=== PATIENT | female | born 1965 | race Caucasian/White ===

== ENCOUNTER → 2022-03-25 09:43 | Outpatient (BNVA) | payer MEDICARE, SELFPAY | PROVIDERS: Visit Provider Physician Assistant | DX: Z01.818 Encounter for other preprocedural examination (principal); K52.9 Noninfective gastroenteritis and colitis, unspecified; R13.10 Dysphagia, unspecified | CPT/HCPCS: 99202 ==

== ENCOUNTER 2022-03-25 10:47 | Outpatient (REF) | payer MEDICARE, SELFPAY ==
[2022-03-25 14:20] LABS: MANUAL DIFF FLAG NO
[2022-03-25 14:22] LABS: Basophils Percent Auto 0.8 % (0-2); Eosinophils Absolute Auto 0.1 X10*3/uL (0.0-0.4); Eosinophils Percent Auto 1.7 % (0-4); Hematocrit 42.4 % (37.0-47.0); Hemoglobin 13.8 g/dl (12.0-16.0); Lymphocytes Absolute Auto 1.8 X10*3/uL (1.2-4.9); Mean Corpuscular HGB Conc 32.5 g/dl (31.0-35.0); Mean Corpuscular Hemoglobin 30.4 pg (27.0-33.0); Mean Corpuscular Volume 93.4 fL (80.0-98.0); Mean Platelet Volume 10.3 fL (9.4-12.3); Monocytes Absolute Auto 0.5 X10*3/uL (0.1-1.2); Monocytes Percent Auto 9.7 % (2-11); Neutrophils Absolute Auto 2.4 x10*3/uL (2.0-8.3); Neutrophils Percent Auto 50.8 % (45-73); Platelet Count 264 X10*3/uL (160-400); Red Blood Count 4.54 X10*6/uL (4.20-5.50); Red Cell Distribution Width 12.7 % (11.0-16.0); White Blood Count 4.8 X10*3/uL (4.8-10.8)
[2022-03-25 14:58] LABS: Erythrocyte Sedimentation Rate 2 MM/HR (0-20)
[2022-03-25 15:00] LABS: Alanine Aminotransferase 15 U/L (0-31); Albumin Level 4.2 g/dL (3.5-5.0); Alkaline Phosphatase 79 U/L (39-117); Anion Gap 10 (12-20); Aspartate Amino Transferase 15 U/L (5-31); Bilirubin Total 0.8 mg/dL (0.0-1.0); Blood Urea Nitrogen 12 mg/dL (9-16); Calcium 9.1 mg/dL (8.4-10.2); Carbon Dioxide 30 mmol/L (22-29); Chloride 105 mmol/L (96-108); Estimated Glomerular Filt Rate > 60; Glucose Random 95 mg/dL (60-115); Potassium 4.2 mmol/L (3.3-5.1); Sodium 141 mmol/L (135-145); Thyroid Stimulating Hormone 1.21 uIU/mL (0.32-4.0); Total Protein 6.5 g/dL (6.5-8.0)
[2022-03-28 05:58] LABS: TS Negative Control Passed; TS Panel A 1; TS Panel B 0; TS Positive Control Passed; TSpotTB Negative (Negative)
== END 2022-03-25 10:48 | disposition home or self-care (01) ==
LOC: HO.WFDLDS 10:47
PROVIDERS: Visit Provider Physician Assistant
DX: Z01.818 Encounter for other preprocedural examination (principal); Z11.1 Encounter for screening for respiratory tuberculosis; R13.10 Dysphagia, unspecified; K52.9 Noninfective gastroenteritis and colitis, unspecified; K59.09 Other constipation
CPT/HCPCS: 36415; 80053; 84443; 85025; 85652; 86481

== ENCOUNTER 2022-03-26 09:41 | Outpatient (REF) | payer MEDICARE, SELFPAY ==
[2022-04-01 22:29] LABS: Calprotectin, Fecal 13 mcg/g
== END 2022-03-26 09:42 | disposition home or self-care (01) ==
LOC: HO.WFDLNP 09:41
PROVIDERS: Visit Provider Physician Assistant
DX: R19.7 Diarrhea, unspecified (principal)
CPT/HCPCS: 83993

== ENCOUNTER → 2022-04-20 09:33 | Outpatient (BNVA) | payer MEDICARE, SELFPAY | PROVIDERS: Visit Provider Internal Medicine | DX: K51.90 Ulcerative colitis, unspecified, without complications (principal); R09.82 Postnasal drip; Z86.010 Personal history of colon polyps | CPT/HCPCS: 99212 ==

== ENCOUNTER 2022-06-18 10:41 | Day surgery (SDC) | payer OTHER, SELFPAY ==
[2022-06-12 12:58] VITALS: BMI 23.5
--- NOTE | 2022-06-17 09:15 | P.CONAN_ITS ---
Documented by User: Yuli Barboza NP 06/17/22 09:16 HPI - Anesthesia Eval Consult details Narrative: 57yo F for Colonoscopy PMFSH Active Problems Active Problems: All Active Problems (Updated 04/20/22 @ 10:35 by Radha Weeks MD) Post-nasal drip (Acute) Personal history of colonic polyps (Acute) Ulcerative colitis (Acute) Dysphagia (Acute) Colitis (Acute) Encounter for screening colonoscopy (Acute) Family History Family History Mother COPD (chronic obstructive pulmonary disease) Mother COPD (chronic obstructive pulmonary disease) Surgical History Surgical History Hx of colonoscopy Social History Social History Household Members: Family Household Members Other:: Recent relocated from [place] Alcohol intake: current Alcohol intake frequency: holidays/special occasions only Patient Tobacco Use Status: Never used Tobacco Are you DNR?: No Advance Directives: No Advance Directives Information Provided: Yes Recently lost weight without trying: No Nutrition Risks: No Nutritional Risk Current occupational status: employed Meds Allergies Allergy/AdvReac Type Severity Reaction Status Date / Time No Known Allergies Allergy Verified 04/20/22 09:47 Home Medications Medication Instructions Recorded Confirmed Last Taken Type mesalamine 1.2 gram tablet,delayed g PO 06/18/22 06/18/22 Unknown History release Exam Exam Date and Time: June 17, 2022 0915 Height,Weight and Vital Signs: Height 5 ft 7 in Weight 68.039 kg Pertinent Lab Results Pertinent Lab Results: Laboratory Tests 03/25/22 03/25/22 11:00 11:00 WBC 4.8 Hgb 13.8 Hct 42.4 Plt Count 264 Sodium 141 Potassium 4.2 Chloride 105 Carbon Dioxide 30 H BUN 12 Creatinine 0.78 Assessment and Plan Assessment Anesthesia Assessment: Chart Reviewed Documented by User: Danya Blank MD 06/18/22 12:19 HPI - Anesthesia Eval Consult details Narrative: 57yo F for Colonoscopy fo ulcerative colitis PMFSH Family History Family History Mother COPD (chronic obstructive pulmonary disease) Mother COPD (chronic obstructive pulmonary disease) Family history of problems with anesthesia: No Surgical History Surgical History Hx of colonoscopy History of Problems with Anesthesia: No Social History Social History Household Members: Family Household Members Other:: Recent relocated from [place] Alcohol intake: current Alcohol intake frequency: holidays/special occasions only Patient Tobacco Use Status: Never used Tobacco Are you DNR?: No Advance Directives: No Advance Directives Information Provided: Yes Recently lost weight without trying: No Nutrition Risks: No Nutritional Risk Current occupational status: employed Meds Allergies Allergy/AdvReac Type Severity Reaction Status Date / Time No Known Allergies Allergy Verified 04/20/22 09:47 Home Medications Medication Instructions Recorded Confirmed Last Taken Type mesalamine 1.2 gram tablet,delayed g PO 06/18/22 06/18/22 Unknown History release Exam Airway Mallampati Class: II TM Dist: >3cm Neck ROM: Full Heart: rr Lungs: cta Assessment and Plan Assessment Anesthesia Assessment: Anesthesia Plan Discussed Final Anesthetic Review Family History of Problems with Anesthesia: No History of Problems with Anesthesia: No NPO: Yes ASA Class: II Final Preanesthetic Review: No Changes in Pt Med Stat, Meds/Allgs Chart Reviewed, Consent Obtained/Reviewed and Anes Risks/Benef Reviewed Patient Risk: Low Procedure Risk: Low Anesthetic Plan Anesthetic Plan: Agree w/ Assess. and Plan Disposition: Standard PACU
[2022-06-18 11:19] VITALS: BP 112/62; PULSE 72; RESP 18; TEMP 36.1; O2SAT 99
--- NOTE | 2022-06-18 11:30 | PC.NURSE ---
NO MEDS TAKEN TODAY
[2022-06-18] MEDS: Lactated Ringers 1,000 ML 100 ML IVCONT (11:41)
--- NOTE | 2022-06-18 11:47 | MHC.SHP ---
Pre-Procedural Eval Section A Date of Service: 06/18/22 Section B Chief Complaint: hx colonic polyps,Ulcerative colitis Relevant Family History (Specify if Yes): No Relevant Social History: None Present Medications: see Short Stay Collaborative assessment Allergies: Allergies Allergy/AdvReac Type Severity Reaction Status Date / Time No Known Allergies Allergy Verified 04/20/22 09:47 Review of Systems Review of Systems Comment: Ten point ROS negative Exam Exam Comment: Gen appear: No acute distress HEENT: no icterus Chest: No overt resp distress Abd: soft, nontender, nondistended Psych: Stable affect, answering questions appropriately Neuro: A/Ox3 noted to move all extremities spontaneously Ext: no peripheral edema Plan Diagnosis/Plan: Unchanged I have reviewed the history and physical and performed a pertinent physical examination on my patient. No changes have occurred unless specified. Time Spent With Patient Time: Total time managing care of this patient today ____ minutes.
--- NOTE | 2022-06-18 12:02 | P.OP_ITS ---
Operative Note Operative Note Date of Service: 06/18/22 Narrative: Procedure: Colonoscopy Indication: Personal history of polyps, UC Endoscopist: Radha Weeks MD Anesthesia Provider: Dr Kris Hutchinson Anesthesia type: MAC Instrument: Olympus [id number]-[id number] Consent: Indication, risks vs benefits, and alternatives were discussed with the patient who gave written informed consent to proceed. EKG, pulse, pulse oximetry and blood pressure were monitored throughout the procedure. Please see anesthesia flowsheet. Procedure: The patient was brought to the procedure room and placed in the left lateral decubitus position. IV medications were administered by the anesthesia provider in attendance. A digital rectal exam was performed which was abnormal for external hemorrhoids. A distal attachment cap was affixed to the tip of the scope and the colonoscope was then inserted through the anus and advanced through the colon to the cecum at 75 cm,and terminal ileum. Appendiceal orifice and ileocecal valve were identified. Mucosa was carefully examined under high definition white light as the instrument was slowly withdrawn in a retrograde panoramic fashion. Retroflexion was performed in rectum. The procedure was somewhat difficult due to loop and sharp hepatic flexure, we were able to intubate the cecum after repositioning the pt on her back. There were no immediate obvious complications. The quality of the prep was BBPS: 2+3+2 = adequate Withdrawal time 10 minutes. Limitations: No limitations. Findings: Mucosa: Normal to cecum and terminal ileum. Multibite biopsies were taken from cecum, ascending, transverse, descending, sigmoid and rectum for histological evaluation. Protruding lesions: * 1 sessile polyp of size 3 mm in rectum. Cold forceps polypectomy was performed. The polyp was completely removed and retrieved. * Medium internal hemorrhoids [without] stigmata of recent bleeding. Impression: 1. Normal colon and terminal ileum mucosa (biopsy) 2. Total of 1 polyp removed from rectum. 3. External and terminal hemorrhoids Recommendations: - Follow path results. - Repeat colonoscopy in 7-10 years if polyps is an adenoma.
--- NOTE | 2022-06-18 12:25 | P.CONAN_ITS ---
[facility] Active Problems Active Problems: All Active Problems (Updated 04/20/22 @ 10:35 by Radha Weeks MD) Post-nasal drip (Acute) Personal history of colonic polyps (Acute) Ulcerative colitis (Acute) Dysphagia (Acute) Colitis (Acute) Encounter for screening colonoscopy (Acute) Family History Family History Mother COPD (chronic obstructive pulmonary disease) Mother COPD (chronic obstructive pulmonary disease) Family history of problems with anesthesia: No Surgical History Surgical History Hx of colonoscopy History of Problems with Anesthesia: No Social History Social History Household Members: Family Household Members Other:: Recent relocated from [place] Alcohol intake: current Alcohol intake frequency: holidays/special occasions only Patient Tobacco Use Status: Never used Tobacco Are you DNR?: No Advance Directives: No Advance Directives Information Provided: Yes Recently lost weight without trying: No Nutrition Risks: No Nutritional Risk Current occupational status: employed Meds Allergies Allergy/AdvReac Type Severity Reaction Status Date / Time No Known Allergies Allergy Verified 04/20/22 09:47 Active Medications: Current Medications Lactated Ringer's (Lr) 1,000 mls @ 100 mls/hr IVCONT .Q10H STARR Last Admin: 06/18/22 11:41 Dose: 100 mls/hr Home Medications Medication Instructions Recorded Confirmed Last Taken Type mesalamine 1.2 gram tablet,delayed g PO 06/18/22 06/18/22 Unknown History release Exam Exam Date and Time: June 18, 2022 1225 Height,Weight and Vital Signs: Height 5 ft 7 in Weight 68.039 kg Last Vital Signs Temp 96.9 F 06/18/22 11:19 Pulse 72 06/18/22 11:19 Resp 18 06/18/22 11:19 BP 112/62 06/18/22 11:19 Pulse Ox 99 06/18/22 11:19 O2 Del Method Room Air 06/18/22 11:19 Airway Mallampati Class: II TM Dist: >3cm Neck ROM: Full Assessment and Plan Assessment Anesthesia Assessment: Anesthesia Plan Discussed and Chart Reviewed Final Anesthetic Review Family History of Problems with Anesthesia: No History of Problems with Anesthesia: No NPO: Yes ASA Class: II Final Preanesthetic Review: No Changes in Pt Med Stat, Meds/Allgs Chart Reviewed, Consent Obtained/Reviewed and Anes Risks/Benef Reviewed Patient Risk: Low Procedure Risk: Low Anesthetic Plan Anesthetic Plan: MAC: Disposition: Standard PACU
[2022-06-18 12:57] VITALS: BP 102/53; PULSE 78; RESP 15; TEMP 36.5; O2SAT 98
[2022-06-18 13:13] VITALS: BP 113/63; PULSE 64; RESP 18; TEMP 36.4; O2SAT 100
== END 2022-06-18 13:53 | disposition home or self-care (01) ==
PROVIDERS: PCP Physician Assistant; Visit Provider Internal Medicine
PROC: 0DJD8ZZ Inspection of Lower Intestinal Tract, Via Natural or Artificial Opening Endoscopic (ICD-10-PCS; CPT 45378; principal; 2022-06-18 12:30)
DX: K51.90 Ulcerative colitis, unspecified, without complications (principal); Z86.010 Personal history of colon polyps; K62.1 Rectal polyp; K64.8 Other hemorrhoids; K64.4 Residual hemorrhoidal skin tags; R13.10 Dysphagia, unspecified; R09.82 Postnasal drip; Z79.899 Other long term (current) drug therapy
CPT/HCPCS: 45380; 88305

== ENCOUNTER 2022-12-08 13:00 | Outpatient (AMB) | payer OTHER, SELFPAY ==
--- NOTE | 2022-12-08 13:12 | MHC.OFFVIS ---
Intake Vital Signs 12/08/22 13:15 Height 5 ft 7 in Weight 156 lb 8.451 oz BMI 24.5 BP 118/59 L Blood Pressure Location Lt brachial Position Sitting Pulse 81 Intake Visit Reasons: 6 Month Follow Up Intake Note: Evelyn presents in the office as a 6 month follow up. CC: She states that she is in a good place and not having any concerns. Allergies No Known Allergies Allergy (Verified 12/08/22 13:14) HPI HPI Comments History of Present Illness Details This is a 57 year old female who has PMH of ulcerative colitis coming for follow up of ulcerative colitis. Pt was previously established with Dr Victoria ([facility]), and relocated to [place] earlier last year. She was initially diagnosed with UC in 2019 when she had frequent loose BMs with blood in it with abdominal pain and bloating. Underwent colonoscopy and was diagnosed with left sided UC and since then has been on mesalamine 4.8g/day orally. Initially was also on suppositories as well x 2-3 weeks. Never needed steroids. No known hx of UC or CD in first degree relatives. No fam hx of CRC. IBD History: Type: Ulcerative colitis Location: left side Age / Yr of diagnosis: 54y.o/2019 Previous medications: N/A Steroids: N/A Current medications: Mesalamine 4.8g/day Previous surgeries: N/A Previous endoscopies: 2019: Left sided UC, polyps.. was given a 3 year interval 2016: asymptomatic screening.. diverticulosis. Fam Hx of CRC: No EIM: hip and joint pains but does not think they correlate 04/20/22: Today patient reports no gastrointestinal complaints to include abd pain, N,V,D. BMs are formed and without blood. Continues on meslamine PO as above. No flare since 2019. Reports hx of Shingles last year. Also reports thick mucus in her nasopharynx shorty in the morning but NO difficulty swallowing or painful swallowing. Has been going on for a few months now. NO changes to breathing or voice. 06/18/22: Colonoscopy Mucosa: Normal to cecum and terminal ileum. Multibite biopsies were taken from cecum, ascending, transverse, descending, sigmoid and rectum for histological evaluation. Protruding lesions: 1 sessile polyp of size 3 mm in rectum. Cold forceps polypectomy was performed. The polyp was completely removed and retrieved. Medium internal hemorrhoids [without] stigmata of recent bleeding. Path: Diagnosis A. Cecum, biopsy: Colonic mucosa within normal limits. B. Colon, ascending, biopsy: Colonic mucosa within normal limits. C. Colon, transverse, biopsy: Colonic mucosa within normal limits. D. Colon, descending, biopsy: Colonic mucosa within normal limits. E. Colon, sigmoid, biopsy: Colonic mucosa within normal limits. F. Rectum, biopsy: Rectal mucosa within normal limits. G. Rectum, polypectomy: Hyperplastic mucosal polyp. COMMENT: No dysplasia is seen. 12/08/22: Reports no acute gastrointestinal concerns to include abdominal pain, N,V,D, blood in stool. Has 1 formed BM daily. No vision changes, joint pains or rashes. On mesalamin 4.8g/day PO. Reserves mesalamine [place] only for flares and has not needed to reach for it in months. Overdue for labs and dexa scan that were ordered earlier this year. Up to date with other screening including pap and mammo per her report. PFSH Surgical History Hx of colonoscopy Family History Mother COPD (chronic obstructive pulmonary disease) Mother COPD (chronic obstructive pulmonary disease) Social History Household Members: Family Household Members Other:: Recent relocated from [place] Alcohol intake: current Alcohol intake frequency: holidays/special occasions only Patient Tobacco Use Status: Never used Tobacco Current occupational status: employed Review of Systems Const All systems reviewed & are unremarkable except as noted in HPI and below Physical Exam Vital Signs: Last Vital Signs Pulse 81 12/08/22 13:15 BP 118/59 L 12/08/22 13:15 BMI result Body Mass Index 24.5 Gen appear: NAD HEENT: nonicteric, no cervical lymphadenopathy Chest: CTA CVS: Regular S1/S2 Abd: soft, nontender, nondistended, bowel sounds + Ext: no peripheral edema Neuro: A/Ox3, noted to move all extremities spontaneously Psych: interacting appropriately Assessment & Plan Assessment & Plan (1) Ulcerative colitis: Code(s): K51.90 - Ulcerative colitis, unspecified, without complications (2) Personal history of colonic polyps: Code(s): Z86.010 - Personal history of colonic polyps Plan Reported left sided ulcerative colitis. - Disease and therapy: In endoscopic and histological remission based on colo 05/2022 - Fecal calpro: 13.02/2022. Repeat ordered. - Can decrease mesalamine to maintenance dose of 3.6 g/day. - Nutrition: No report of ileal disease. Iron and B12 check ordered. - Immunization: Educated re all age appropriate vaccines including Covid-19 vaccination and Influenza. Checking hep serologies as well. - Bone Health: Check Vit D levels, will replete if low. Dexa scan ordered. - Cancer prevention: Will be due for dysplasia surveillance 8y after UC dx i.e in 2027. Per her report up to date with pap and mammo. Sun safety: counseled re SPF use Follow up in 6 months Orders: Orders C Reactive Protein Today K51.90 - Ulcerative colitis, unspecified, without complications Ferritin Today K51. - Ulcerative colitis, unspecified, without complications Hepatitis B Core Antibody Today K5. - Ulcerative colitis, unspecified, without complications Hepatitis B Surface Antigen Today K5. - Ulcerative colitis, unspecified, without complications Hepatitis C Antibody Today K51. - Ulcerative colitis, unspecified, without complications Thiopurine Methyltransferase Today K51. - Ulcerative colitis, unspecified, without complications Calprotectin, Fecal Today K5. - Ulcerative colitis, unspecified, without complications Complete Blood Count no Diff Today K51. - Ulcerative colitis, unspecified, without complications Comprehensive Met. Panel Today K51.90 - Ulcerative colitis, unspecified, without complications IRON PROFILE Today K51. - Ulcerative colitis, unspecified, without complications Hepatitis A IgG Today K51. - Ulcerative colitis, unspecified, without complications Hepatitis B Surface Antibody Today K51. - Ulcerative colitis, unspecified, without complications Transglutaminase IgA Today K51. - Ulcerative colitis, unspecified, without complications Immunoglobulin A Today K51. - Ulcerative colitis, unspecified, without complications Vitamin B12 and Folate Today K51.90 - Ulcerative colitis, unspecified, without complications Vitamin D 25-OH Total Today K51. - Ulcerative colitis, unspecified, without complications XR DEXA axial skeleton Today K51.90 - Ulcerative colitis, unspecified, without complications Medications: Changed From mesalamine PO To mesalamine 3.6 grams (3 x 1.2 gram) PO DAILY 90 days 270 tabs 2RF Coding Level of Care Code Est Pt Level 4 (52127) Diagnoses Ulcerative colitis K51.90 Personal history of colonic polyps Z86.010
[2022-12-08 13:15] VITALS: BP 118/59; PULSE 81; BMI 24.5
== END 2022-12-08 13:57 | disposition home or self-care (01) ==
PROVIDERS: PCP Physician Assistant; Visit Provider Internal Medicine
DX: K51.90 Ulcerative colitis, unspecified, without complications (principal); Z86.010 Personal history of colon polyps
CPT/HCPCS: 99214

== ENCOUNTER → 2022-12-08 13:00 | Outpatient (BNVA) | payer OTHER, SELFPAY | PROVIDERS: PCP Physician Assistant; Visit Provider Internal Medicine ==

== ENCOUNTER 2022-12-11 11:17 | Outpatient (REF) | payer OTHER, SELFPAY ==
[2022-12-11 11:53] LABS: Hematocrit 39.8 % (37.0-47.0); Hemoglobin 13.1 g/dl (12.0-16.0); Mean Corpuscular HGB Conc 32.9 g/dl (31.0-35.0); Mean Corpuscular Hemoglobin 30.7 pg (27.0-33.0); Mean Corpuscular Volume 93.2 fL (80.0-98.0); Platelet Count 242 X10*3/uL (160-400); Red Blood Count 4.27 X10*6/uL (4.20-5.50); Red Cell Distribution Width 13.2 % (11.0-16.0); White Blood Count 4.9 X10*3/uL (4.8-10.8)
[2022-12-11 12:12] LABS: INTERNATIONAL NORM RATIO 0.9 (0.9-1.1); Prothrombin Time 10.9 SEC (11.1-13.3)
[2022-12-11 13:26] LABS: Folate 12.4 ng/mL (> or = 4.0); Vitamin B12 451 pg/mL (200-900)
[2022-12-11 14:13] LABS: Alanine Aminotransferase 13 U/L (0-31); Albumin Level 4.4 g/dL (3.5-5.0); Alkaline Phosphatase 73 U/L (39-117); Anion Gap 11 (12-20); Aspartate Amino Transferase 15 U/L (5-31); Bilirubin Total 1.1 mg/dL (0.0-1.0); Blood Urea Nitrogen 14 mg/dL (9-16); C Reactive Protein 0.11 mg/dL (< or = 0.50); Calcium 9.6 mg/dL (8.4-10.2); Carbon Dioxide 29 mmol/L (22-29); Chloride 105 mmol/L (96-108); Estimated Glomerular Filt Rate > 60; Ferritin 101 ng/mL (10-250); Glucose Random 83 mg/dL (60-115); Iron 138 mcg/dL (30-160); Percent Iron Saturation 42 % (15-50); Sodium 141 mmol/L (135-145); Total Iron Binding Capacity 326 mcg/dL (228-428); Total Protein 7.1 g/dL (6.5-8.0); Unsaturated Iron Binding 188 ug/dL; Vitamin D 25-OH Total 36.6 ng/mL (>30)
[2022-12-12 04:20] LABS: HBS Num1 0.05 mIU/mL (0-7.99); HBc Num1 0.08 S/CO (0.00-0.79); HBsAGNum1 0.26 S/CO (0.00-0.99); Hepatitis B Core Antibody Nonreactive (Nonreactive); Hepatitis B Surface Antigen Negative (Negative); ~HepC Num1 0.06 S/CO (0.00-0.79); ~Hepatitis B Surface Antibody NONREACTIVE (Nonreactive); ~Hepatitis C Antibody Nonreactive (Nonreactive)
[2022-12-12 04:27] LABS: Hepatitis A Antibody IgG Nonreactive (Nonreactive)
[2022-12-16 21:53] LABS: Immunoglobulin A 113 mg/dL (47-310)
[2022-12-17 13:13] LABS: Transglutaminase IgA <1.0 U/mL
[2022-12-22 19:04] LABS: TPMT Activity 16
== END 2022-12-11 11:18 | disposition home or self-care (01) ==
LOC: HO.LAB 11:17
PROVIDERS: Visit Provider Internal Medicine
DX: K51.90 Ulcerative colitis, unspecified, without complications (principal)
CPT/HCPCS: 36415; 80053; 82306; 82607; 82728; 82746; 82784; 83540; 84433; 85027; 85610; 86140; 86364; 86704; 86706; 86708; 86803; 87340

== ENCOUNTER 2022-12-14 11:20 | Outpatient (REF) | payer OTHER, SELFPAY ==
[2022-12-20 23:59] LABS: Calprotectin, Fecal 8 mcg/g
== END 2022-12-14 11:21 | disposition home or self-care (01) ==
LOC: HO.LNP 11:20
PROVIDERS: Visit Provider Internal Medicine
DX: K51.90 Ulcerative colitis, unspecified, without complications (principal)
CPT/HCPCS: 83993

== ENCOUNTER 2023-06-09 09:49 | Outpatient (AMB) | payer OTHER, SELFPAY ==
--- NOTE | 2023-06-09 09:52 | MHC.OFFVIS ---
Intake Vital Signs 06/09/23 09:54 Height 5 ft 7 in Weight 156 lb 8.451 oz BMI 24.5 BP 114/55 L Blood Pressure Location Lt brachial Position Sitting Pulse 69 Intake Visit Reasons: 6 month follow up Intake Note: Evelyn presents in the office as a 6 month follow up. CC: She states she is not having any concerns since her last appt. Allergies No Known Allergies Allergy (Verified 06/09/23 09:54) HPI HPI Comments History of Present Illness Details This is a 57 year old female who has PMH of ulcerative colitis coming for follow up of ulcerative colitis. Pt was previously established with Dr Victoria ([facility]), and relocated to [place] earlier last year. She was initially diagnosed with UC in 2019 when she had frequent loose BMs with blood in it with abdominal pain and bloating. Underwent colonoscopy and was diagnosed with left sided UC and since then has been on mesalamine 4.8g/day orally. Initially was also on suppositories as well x 2-3 weeks. Never needed steroids. No known hx of UC or CD in first degree relatives. No fam hx of CRC. IBD History: Type: Ulcerative colitis Location: left side Age / Yr of diagnosis: 54y.o/2019 Previous medications: N/A Steroids: N/A Current medications: Mesalamine 3.6g/day (decreased from 4.8g/day in 11/2022) Previous surgeries: N/A Previous endoscopies: 2022: Deep remission. 3mm hyperplastic rectal polyp. 2019: Left sided UC, polyps.. was given a 3 year interval 2016: asymptomatic screening.. diverticulosis. Fam Hx of CRC: No EIM: hip and joint pains but does not think they correlate 04/20/22: Today patient reports no gastrointestinal complaints to include abd pain, N,V,D. BMs are formed and without blood. Continues on meslamine PO as above. No flare since 2019. Reports hx of Shingles last year. Also reports thick mucus in her nasopharynx shorty in the morning but NO difficulty swallowing or painful swallowing. Has been going on for a few months now. NO changes to breathing or voice. 06/18/22: Colonoscopy Mucosa: Normal to cecum and terminal ileum. Multibite biopsies were taken from cecum, ascending, transverse, descending, sigmoid and rectum for histological evaluation. Protruding lesions: 1 sessile polyp of size 3 mm in rectum. Cold forceps polypectomy was performed. The polyp was completely removed and retrieved. Medium internal hemorrhoids [without] stigmata of recent bleeding. Path: Diagnosis A. Cecum, biopsy: Colonic mucosa within normal limits. B. Colon, ascending, biopsy: Colonic mucosa within normal limits. C. Colon, transverse, biopsy: Colonic mucosa within normal limits. D. Colon, descending, biopsy: Colonic mucosa within normal limits. E. Colon, sigmoid, biopsy: Colonic mucosa within normal limits. F. Rectum, biopsy: Rectal mucosa within normal limits. G. Rectum, polypectomy: Hyperplastic mucosal polyp. COMMENT: No dysplasia is seen. 12/08/22: Reports no acute gastrointestinal concerns to include abdominal pain, N,V,D, blood in stool. Has 1 formed BM daily. No vision changes, joint pains or rashes. On mesalamin 4.8g/day PO. Reserves mesalamine [place] only for flares and has not needed to reach for it in months. Overdue for labs and dexa scan that were ordered earlier this year. Up to date with other screening including pap and mammo per her report. 06/09/23: Reports no acute gastrointestinal concerns to include abdominal pain, N,V,D, blood in stool. Has 1 formed BM daily most of the days. No vision changes or rashes. 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 On mesalamine 3.6g/day PO. Did not notice any worsenign of sx when she decreased from 4.8 in Nov. Reserves mesalamine [place] only for flares. Labs from Nov 2022 reviewed. Due for DEXA Still. [facility] Surgical History Hx of colonoscopy Family History Mother COPD (chronic obstructive pulmonary disease) Mother COPD (chronic obstructive pulmonary disease) Social History Household Members: Family Household Members Other:: Recent relocated from [place] Alcohol intake: current Alcohol intake frequency: holidays/special occasions only Patient Tobacco Use Status: Never used Tobacco Current occupational status: employed Review of Systems Const All systems reviewed & are unremarkable except as noted in HPI and below Physical Exam Vital Signs: Last Vital Signs Pulse 69 06/09/23 09:54 BP 114/55 L 06/09/23 09:54 BMI result Body Mass Index 24.5 Gen appear: NAD HEENT: nonicteric, no cervical lymphadenopathy Chest: CTA CVS: Regular S1/S2 Abd: soft, nontender, nondistended, bowel sounds + Ext: no peripheral edema Neuro: A/Ox3, noted to move all extremities spontaneously Psych: interacting appropriately Assessment & Plan Assessment & Plan (1) Ulcerative colitis: Code(s): K51.90 - Ulcerative colitis, unspecified, without complications (2) Personal history of colonic polyps: Code(s): Z86.010 - Personal history of colonic polyps Plan Left sided ulcerative colitis. - Disease and therapy: In endoscopic and histological remission based on colo 05/2022 - Fecal calpro: 8 in Nov 2022. - Cont mesalamine 3.6 g/day. - Nutrition: Due for iron, B12 and folate check. - Immunization: Educated re all age appropriate vaccines including Covid-19 vaccination and Influenza. - Bone Health: Check Vit D levels, will replete if low. Dexa scan re-ordered. - Cancer prevention: Will be due for dysplasia surveillance 8y after UC dx i.e in 2027. Per her report up to date with pap and mammo. Sun safety: counseled re SPF use Follow up in 6 months Orders: Orders Complete Blood Count no Diff Today K51.90 - Ulcerative colitis, unspecified, without complications Comprehensive Met. Panel Today K51.90 - Ulcerative colitis, unspecified, without complications Ferritin Today K51.90 - Ulcerative colitis, unspecified, without complications Vitamin D 25-OH Total Today K51.90 - Ulcerative colitis, unspecified, without complications XR DEXA axial skeleton Today K51.90 - Ulcerative colitis, unspecified, without complications, Z78.0 - Asymptomatic menopausal state Calprotectin, Fecal Today K51.90 - Ulcerative colitis, unspecified, without complications Vitamin B12 and Folate Today K51.90 - Ulcerative colitis, unspecified, without complications Coding Level of Care Code Est Pt Level 4 (84813) Diagnoses Ulcerative colitis K51.90 Personal history of colonic polyps Z86.010
[2023-06-09 09:54] VITALS: BP 114/55; PULSE 69; BMI 24.5
== END 2023-06-09 10:22 | disposition home or self-care (01) ==
PROVIDERS: PCP Physician Assistant; Visit Provider Internal Medicine
DX: K51.90 Ulcerative colitis, unspecified, without complications (principal); Z86.010 Personal history of colon polyps
CPT/HCPCS: 99214

== ENCOUNTER → 2023-06-09 09:49 | Outpatient (BNVA) | payer OTHER, SELFPAY | PROVIDERS: PCP Physician Assistant; Visit Provider Internal Medicine ==

== ENCOUNTER 2023-06-25 11:16 | Outpatient (REF) | payer OTHER, SELFPAY ==
--- NOTE | ~2023-06-25 | MM_ITS ---
EXAMINATION: BONE DENSITOMETRY CLINICAL INDICATION: Postmenopausal. COMPARISON: This is the patient's baseline examination. TECHNIQUE: Using a [employer] DXA System (software version: 13.1) manufactured by [employer], dual-energy x-ray absorptiometry was performed of the lumbar spine and left hip. The images are of good technical quality. Summary results are attached. FINDINGS: LEFT FEMUR, NECK: BMD 0.741 g/cm2, Z-score -1.0, T-score -2.1, osteopenia. LEFT FEMUR, TOTAL: BMD 0.897 g/cm2, Z-score -0.1, T-score -0.9, normal. AP SPINE L1-L4: BMD 0.931 g/cm2, Z-score -1.1, T-score -2.1, osteopenia. IDENTIFIED RISK FACTORS: Menopause, secondary osteoporosis. HISTORY OF FRACTURE: None listed. MEDICATIONS: Multivitamin. MM/XR DEXA axial skeleton IMPRESSION: 1. DIAGNOSIS: Osteopenia based on the lowest T-score value of -2.1 in the femur neck and lumbar spine applying World Health Organization criteria. 2. 10-YEAR FRACTURE RISK PREDICTION, FRAX: Major osteoporotic fracture (clinical spine, forearm, hip or shoulder) 9.7%. Hip fracture 1.4%. 3. Treatment Recommendations: NOF guidelines recommend consideration for treatment in postmenopausal women and men age 50 and older presenting with the following: -A hip or vertebral (clinical or morphometric) fracture. -T-score less than or equal to -2.5 at the femoral neck or spine after appropriate evaluation to exclude secondary causes. -Low bone mass at the hip or spine and a 10-year fracture probability by FRAX of greater than or equal to 3% for hip fracture or greater than or equal to 20% for major osteoporotic fracture based on the [place] adapted WHO algorithm. 4. Other Recommendations: All treatment decisions require clinical judgment and consideration of individual patient factors, including patient preferences, comorbidities, previous drug use, risk factors not captured in the FRAX model (e.g. frailty, falls, vitamin D deficiency, increased bone turnover, interval significant decline in bone density) and possible under or overestimation of fracture risk by FRAX. Additional medical evaluation for secondary cause of low bone mineral density may be appropriate. FUTURE SCAN RECOMMENDATION: People with diagnosed cases of osteoporosis or at high risk for fracture should have regular bone mineral density tests. For patients eligible for Medicare, routine testing is allowed once every 2 years. The testing frequency can be increased to one year for patients who have rapidly progressing disease, those who are receiving or discontinuing medical therapy to restore bone mass, or have additional risk factors.
== END 2023-06-25 11:17 | disposition home or self-care (01) ==
LOC: HO.MAMMO 11:16
PROVIDERS: PCP Physician Assistant; Visit Provider Internal Medicine
DX: Z13.820 Encounter for screening for osteoporosis (principal); Z78.0 Asymptomatic menopausal state; K51.90 Ulcerative colitis, unspecified, without complications
CPT/HCPCS: 77080

== ENCOUNTER 2024-02-07 11:50 | Outpatient (AMB) | payer OTHER, SELFPAY ==
[2024-02-07 11:53] VITALS: BP 124/68; PULSE 66; BMI 24.5
--- NOTE | 2024-02-07 11:53 | MHC.OFFVIS ---
Vital Signs 02/07/24 11:53 Height 5 ft 7 in Weight 156 lb 8.451 oz BMI 24.5 BP 124/68 Blood Pressure Location Lt brachial Position Sitting Pulse 66 Intake Visit Reasons: 6 month follow up r/s from 12/07 Intake Note: Patient presents in 6 months follow up. CC: Patient reports doing well and denies having any GI symptoms or concerns today. Physician Scribe Required: No Accompanied by: Self / Same As Patient Allergies No Known Allergies Allergy (Verified 06/09/23 09:54) HPI Comments Details: This is a 57 year old female who has PMH of ulcerative colitis coming for follow up of ulcerative colitis. Pt was previously established with Dr Victoria ([facility]), and relocated to [place] earlier last year. She was initially diagnosed with UC in 2019 when she had frequent loose BMs with blood in it with abdominal pain and bloating. Underwent colonoscopy and was diagnosed with left sided UC and since then has been on mesalamine 4.8g/day orally. Initially was also on suppositories as well x 2-3 weeks. Never needed steroids. No known hx of UC or CD in first degree relatives. No fam hx of CRC. IBD History: Type: Ulcerative colitis Location: left side Age / Yr of diagnosis: 54y.o/2019 Previous medications: N/A Steroids: N/A Current medications: Mesalamine 3.6g/day (decreased from 4.8g/day in 11/2022) Previous surgeries: N/A Previous endoscopies: 2022: Deep remission. 3mm hyperplastic rectal polyp. 2019: Left sided UC, polyps.. was given a 3 year interval 2016: asymptomatic screening.. diverticulosis. Fam Hx of CRC: No EIM: hip and joint pains but does not think they correlate 04/20/22: Today patient reports no gastrointestinal complaints to include abd pain, N,V,D. BMs are formed and without blood. Continues on meslamine PO as above. No flare since 2019. Reports hx of Shingles last year. Also reports thick mucus in her nasopharynx shorty in the morning but NO difficulty swallowing or painful swallowing. Has been going on for a few months now. NO changes to breathing or voice. 06/18/22: Colonoscopy Mucosa: Normal to cecum and terminal ileum. Multibite biopsies were taken from cecum, ascending, transverse, descending, sigmoid and rectum for histological evaluation. Protruding lesions: 1 sessile polyp of size 3 mm in rectum. Cold forceps polypectomy was performed. The polyp was completely removed and retrieved. Medium internal hemorrhoids [without] stigmata of recent bleeding. Path: Diagnosis A. Cecum, biopsy: Colonic mucosa within normal limits. B. Colon, ascending, biopsy: Colonic mucosa within normal limits. C. Colon, transverse, biopsy: Colonic mucosa within normal limits. D. Colon, descending, biopsy: Colonic mucosa within normal limits. E. Colon, sigmoid, biopsy: Colonic mucosa within normal limits. F. Rectum, biopsy: Rectal mucosa within normal limits. G. Rectum, polypectomy: Hyperplastic mucosal polyp. COMMENT: No dysplasia is seen. 12/08/22: Reports no acute gastrointestinal concerns to include abdominal pain, N,V,D, blood in stool. Has 1 formed BM daily. No vision changes, joint pains or rashes. On mesalamin 4.8g/day PO. Reserves mesalamine [place] only for flares and has not needed to reach for it in months. Overdue for labs and dexa scan that were ordered earlier this year. Up to date with other screening including pap and mammo per her report. 06/09/23: Reports no acute gastrointestinal concerns to include abdominal pain, N,V,D, blood in stool. Has 1 formed BM daily most of the days. No vision changes or rashes. Had some bilateral hip pain which she attributed to toe pain and is now better since addressing the issue with veterinary practice manager. On mesalamine 3.6g/day PO. Did not notice any worsenign of sx when she decreased from 4.8 in Nov. Reserves mesalamine [place] only for flares. Labs from Nov 2022 reviewed. Due for DEXA Still. 02/07/24: Here for 6m follow up. No acute GI concerns. No abd pain. Having formed BMs 1/day. NO blood. No urgency. Continues on mesalamine 3.6/day. Labs pending from last visit. [facility] Surgical History Hx of colonoscopy Family History Mother COPD (chronic obstructive pulmonary disease) Mother COPD (chronic obstructive pulmonary disease) Social History Household Members: Family Household Members Other:: Recent relocated from [place] Alcohol intake: current Alcohol intake frequency: holidays/special occasions only Patient Tobacco Use Status: Never used Tobacco Current occupational status: employed Review of Systems Const All systems reviewed & are unremarkable except as noted in HPI and below Physical Exam Vital Signs: BMI result Body Mass Index 24.5 Assessment & Plan Assessment & Plan (1) Ulcerative colitis: Code(s): K51.90 - Ulcerative colitis, unspecified, without complications Category: Medical (2) Personal history of colonic polyps: Code(s): Z86.010 - Personal history of colon polyps Category: Medical Plan Left sided ulcerative colitis. - Disease and therapy: In endoscopic and histological remission based on colo 05/2022 - Fecal calpro: 8 in Nov 2022. - Cont mesalamine 3.6 g/day. Refilled - Labs ordered CRP and fecal calpro - Nutrition: Due for iron, B12 and folate check. - Immunization: Educated re all age appropriate vaccines including Covid-19 vaccination and Influenza. - Bone Health: Check Vit D levels. - Cancer prevention: Will be due for dysplasia surveillance 8y after UC dx i.e in 2027. Per her report up to date with pap and mammo. Sun safety: counseled re SPF use Follow up in 6 months Orders: Orders Ferritin Today K51.90 - Ulcerative colitis, unspecified, without complications Vitamin B12 and Folate Today K51.90 - Ulcerative colitis, unspecified, without complications IRON PROFILE Today K51.90 - Ulcerative colitis, unspecified, without complications Complete Blood Count no Diff Today K51.90 - Ulcerative colitis, unspecified, without complications Comprehensive Met. Panel Today K51.90 - Ulcerative colitis, unspecified, without complications Vitamin D 25-OH Total Today K51.90 - Ulcerative colitis, unspecified, without complications Calprotectin, Fecal Today K51.90 - Ulcerative colitis, unspecified, without complications Medications: Refilled mesalamine 3.6 grams (3 x 1.2 gram) PO DAILY 90 days 270 tabs 2RF Coding Level of Care Code Est Pt Level 3 (09228) Diagnoses Ulcerative colitis K51.90 Personal history of colonic polyps Z86.010
== END 2024-02-07 12:56 | disposition home or self-care (01) ==
PROVIDERS: PCP Physician Assistant; Visit Provider Internal Medicine
DX: K51.90 Ulcerative colitis, unspecified, without complications (principal); Z86.0100 Personal history of colon polyps, unspecified
CPT/HCPCS: 99213

== ENCOUNTER 2024-02-07 11:50 | Outpatient (REF) | payer OTHER, SELFPAY ==
[2024-02-07 12:32] LABS: Hematocrit 41.1 % (37.0-47.0); Hemoglobin 13.8 g/dl (12.0-16.0); Mean Corpuscular HGB Conc 33.6 g/dl (31.0-35.0); Mean Corpuscular Hemoglobin 30.8 pg (27.0-33.0); Mean Corpuscular Volume 91.7 fL (80.0-98.0); Mean Platelet Volume 9.9 fL (9.4-12.3); Platelet Count 224 X10*3/uL (160-400); Red Blood Count 4.48 X10*6/uL (4.20-5.50); Red Cell Distribution Width 12.8 % (11.0-16.0); White Blood Count 7.2 X10*3/uL (4.8-10.8)
[2024-02-07 13:14] LABS: Alanine Aminotransferase 18 U/L (0-31); Albumin Level 4.4 g/dL (3.5-5.0); Alkaline Phosphatase 103 U/L (39-117); Anion Gap 14 (12-20); Aspartate Amino Transferase 20 U/L (5-31); Bilirubin Total 0.8 mg/dL (0.0-1.0); Blood Urea Nitrogen 15 mg/dL (9-16); Calcium 9.9 mg/dL (8.4-10.2); Carbon Dioxide 27 mmol/L (22-29); Chloride 105 mmol/L (96-108); Estimated Glomerular Filt Rate > 60; Glucose Random 100 mg/dL (60-115); Iron 103 mcg/dL (30-160); Percent Iron Saturation 34 % (15-50); Potassium 4.5 mmol/L (3.3-5.1); Sodium 141 mmol/L (135-145); Total Iron Binding Capacity 302 mcg/dL (228-428); Total Protein 7.2 g/dL (6.5-8.0); Unsaturated Iron Binding 199 ug/dL
[2024-02-07 13:30] LABS: Ferritin 81 ng/mL (10-250); Vitamin D 25-OH Total 35.6 ng/mL (>30)
[2024-02-07 13:46] LABS: Folate 11.1 ng/mL (> or = 4.0); Vitamin B12 517 pg/mL (200-900)
== END 2024-02-07 11:51 | disposition home or self-care (01) ==
LOC: HO.LAB 11:50
PROVIDERS: PCP Physician Assistant; Visit Provider Internal Medicine
DX: K51.90 Ulcerative colitis, unspecified, without complications (principal); Z86.0100 Personal history of colon polyps, unspecified
CPT/HCPCS: 36415; 80053; 82306; 82607; 82728; 82746; 83540; 85027

== ENCOUNTER 2024-03-09 13:28 | Outpatient (REF) | payer OTHER, SELFPAY ==
--- OUTSIDE RECORDS SUMMARY | 2024-03-09 13:29 | XMS_ITS ---
Author Name [facility] Organization Unknown History of Medication Use Medication Directions Dispensed Refills Start Date End Date Stat valacyclovir 1 gram tablet TAKE 1 TABLET BY MOUTH THREE TIMES A DAY FOR 7 DAYS 09/10/2022 active mesalamine 1,000 mg rectal suppository INSERT 1 SUPPOSITORY RECTALLY AT BEDTIME DAILY 09/10/2022 active Lialda 1.2 gram tablet,delayed release TAKE 4 TABLETS BY MOUTH DAILY 09/10/2022 active Problems Problem Status Onset Date Problem Type Date of Resoluti on Source Closed fracture of shaft of fifth metacarpal bone of left hand active 2022-09-08 ProblemAct ENS_AONECT
[2024-03-17 00:53] LABS: Calprotectin, Fecal <5 mcg/g
== END 2024-03-09 13:29 | disposition home or self-care (01) ==
LOC: HO.LNP 13:28
PROVIDERS: Visit Provider Internal Medicine
DX: K51.90 Ulcerative colitis, unspecified, without complications (principal)
CPT/HCPCS: 83993

== ENCOUNTER 2024-08-07 11:50 | Outpatient (REF) | payer BC, SELFPAY ==
[2024-08-07 13:47] LABS: Hematocrit 40.5 % (37.0-47.0); Hemoglobin 13.3 g/dl (12.0-16.0); Mean Corpuscular HGB Conc 32.8 g/dl (31.0-35.0); Mean Corpuscular Hemoglobin 30.5 pg (27.0-33.0); Mean Corpuscular Volume 92.9 fL (80.0-98.0); Mean Platelet Volume 9.5 fL (9.4-12.3); Platelet Count 248 X10*3/uL (160-400); Red Blood Count 4.36 X10*6/uL (4.20-5.50); Red Cell Distribution Width 13.1 % (11.0-16.0); White Blood Count 5.2 X10*3/uL (4.8-10.8)
[2024-08-07 15:03] LABS: Alanine Aminotransferase 20 U/L (0-31); Albumin Level 4.3 g/dL (3.5-5.0); Alkaline Phosphatase 97 U/L (39-117); Anion Gap 13 (12-20); Aspartate Amino Transferase 22 U/L (5-31); Bilirubin Total 0.7 mg/dL (0.0-1.0); Blood Urea Nitrogen 17 mg/dL (9-16); C Reactive Protein 0.11 mg/dL (< or = 0.50); Calcium 9.3 mg/dL (8.4-10.2); Carbon Dioxide 26 mmol/L (22-29); Chloride 105 mmol/L (96-108); Estimated Glomerular Filt Rate > 60; Glucose Random 96 mg/dL (60-115); Potassium 4.4 mmol/L (3.3-5.1); Sodium 140 mmol/L (135-145); Total Protein 6.9 g/dL (6.5-8.0)
== END 2024-08-07 11:51 | disposition home or self-care (01) ==
LOC: HO.LAB 11:50
PROVIDERS: Visit Provider Internal Medicine
DX: K51.90 Ulcerative colitis, unspecified, without complications (principal)
CPT/HCPCS: 36415; 80053; 85027; 86140

== ENCOUNTER 2024-08-07 11:50 | Outpatient (AMB) | payer BC, SELFPAY ==
[2024-08-07 11:54] VITALS: BP 119/61; PULSE 81; O2SAT 98; BMI 24.8
--- NOTE | 2024-08-07 11:54 | A.OFFVIS_ITS ---
Vital Signs 08/07/24 11:54 Height 5 ft 7 in Weight 158 lb 4.67 oz BMI 24.8 BP 119/61 Blood Pressure Location Lt brachial Position Sitting Pulse 81 Pulse Source Pulse Oximeter Pulse Oximetry (%) 98 Oxygen Delivery Method Room Air Intake Visit Reasons: 6 month follow up Intake Note: Pt presents to the office today for a 6 month follow up. Pt states she is overall feeling well and denies any N/V/D. Allergies No Known Allergies Allergy (Verified 08/07/24 11:56) HPI Comments Details: This is a 57 year old female who has PMH of ulcerative colitis coming for follow up of ulcerative colitis. Pt was previously established with Dr Victoria ([facility]), and relocated to [place] earlier last year. She was initially diagnosed with UC in 2019 when she had frequent loose BMs with blood in it with abdominal pain and bloating. Underwent colonoscopy and was diagnosed with left sided UC and since then has been on mesalamine 4.8g/day orally. Initially was also on suppositories as well x 2-3 weeks. Never needed steroids. No known hx of UC or CD in first degree relatives. No fam hx of CRC. IBD History: Type: Ulcerative colitis Location: left side Age / Yr of diagnosis: 54y.o/2018 Previous medications: Mesalamine 3.6g/day (decreased from 4.8g/day in 11/2022) Steroids: N/A Current medications: sulfalazine 1.5 mg BID Previous surgeries: N/A Previous endoscopies: 2022: Deep remission. 3mm hyperplastic rectal polyp. 2019: Left sided UC, polyps.. was given a 3 year interval 2016: asymptomatic screening.. diverticulosis. Fam Hx of CRC: No EIM: hip and joint pains but does not think they correlate 04/20/22: Today patient reports no gastrointestinal complaints to include abd pain, N,V,D. BMs are formed and without blood. Continues on meslamine PO as above. No flare since 2019. Reports hx of Shingles last year. Also reports thick mucus in her nasopharynx shorty in the morning but NO difficulty swallowing or painful swallowing. Has been going on for a few months now. NO changes to breathing or voice. 06/18/22: Colonoscopy Mucosa: Normal to cecum and terminal ileum. Multibite biopsies were taken from cecum, ascending, transverse, descending, sigmoid and rectum for histological evaluation. Protruding lesions: * 1 sessile polyp of size 3 mm in rectum. Cold forceps polypectomy was performed. The polyp was completely removed and retrieved. * Medium internal hemorrhoids [without] stigmata of recent bleeding. Path: Diagnosis A. Cecum, biopsy: Colonic mucosa within normal limits. B. Colon, ascending, biopsy: Colonic mucosa within normal limits. C. Colon, transverse, biopsy: Colonic mucosa within normal limits. D. Colon, descending, biopsy: Colonic mucosa within normal limits. E. Colon, sigmoid, biopsy: Colonic mucosa within normal limits. F. Rectum, biopsy: Rectal mucosa within normal limits. G. Rectum, polypectomy: Hyperplastic mucosal polyp. COMMENT: No dysplasia is seen. 12/08/22: Reports no acute gastrointestinal concerns to include abdominal pain, N,V,D, blood in stool. Has 1 formed BM daily. No vision changes, joint pains or rashes. On mesalamine 4.8g/day PO. Reserves mesalamine [place] only for flares and has not needed to reach for it in months. Overdue for labs and dexa scan that were ordered earlier this year. Up to date with other screening including pap and mammo per her report. 06/09/23: Reports no acute gastrointestinal concerns to include abdominal pain, N,V,D, blood in stool. Has 1 formed BM daily most of the days. No vision changes or rashes. Had some bilateral hip pain which she attributed to toe pain and is now better since addressing the issue with hostess cashier. On mesalamine 3.6g/day PO. Did not notice any worsenign of sx when she decreased from 4.8 in Nov. Reserves mesalamine [place] only for flares. Labs from Nov 2022 reviewed. Due for DEXA Still. 02/07/24: Here for 6m follow up. No acute GI concerns. No abd pain. Having formed BMs 1/day. NO blood. No urgency. Continues on mesalamine 3.6/day. Labs pending from last visit. 08/07/24: Routine q6m follow up. Had to be switched to sulfalazine 1.5 mg BID in May 2024 due to copay change in mesalamine. Reports having bloating and cramping and some vague discomfort shorty at night. No nausea or vomiting. Seems food related but also has had change in med as noted in above. Stools are unchanged - 1 BM per day formed, no blood. However sometimes a bit mucusy since 2-3 weeks. Labs reviewed, no anemia. Fecal calpro < 5. However these are from FEB 2024- BEFORE switch to sulfasalazine. PFSH Surgical History Hx of colonoscopy Family History Mother COPD (chronic obstructive pulmonary disease) Mother COPD (chronic obstructive pulmonary disease) Social History Household Members: Family Household Members Other:: Recent relocated from [place] Alcohol intake: current Alcohol intake frequency: holidays/special occasions only Patient Tobacco Use Status: Never used Tobacco Current occupational status: employed Review of Systems Const All systems reviewed & are unremarkable except as noted in HPI and below Physical Exam Vital Signs: Last Vital Signs Pulse 81 08/07/24 11:54 BP 119/61 08/07/24 11:54 Pulse Ox 98 08/07/24 11:54 Oxygen Delivery Method Room Air 08/07/24 11:54 BMI result Body Mass Index 24.8 No apparent distress Nonicteric Abdomen soft, nondistended Alert and oriented x3, normal gait Assessment & Plan Assessment & Plan (1) Ulcerative colitis: Code(s): K51.90 - Ulcerative colitis, unspecified, without complications Category: Medical (2) Personal history of colonic polyps: Code(s): Z86.010 - Personal history of colon polyps Category: Medical Plan Left sided ulcerative colitis. - Disease and therapy: In endoscopic and histological remission based on colo 05/2022. However has been having lower abd sx x 2-3 weeks i.e 2 months after change to sulfasalazine was made. To note - pt was only taking sulfasalazine 1.5 ONCE daily. - Reminded to increase sulfasalazine 1.5 mg to BID as originally prescribed - Labs ordered CRP and fecal calpro to r/o flare - Nutrition: Normal iron, B12 and folate check. - Immunization: Educated re all age appropriate vaccines including Covid-19 vaccination and Influenza. - Bone Health: Normal Vit D levels. - Cancer prevention: If stool studies + flare, will manuela for a colo. Otherwise will be due in 2026 - i.e 8y from dx of UC. Follow up in 6 months Orders: Orders C Reactive Protein Today K51.90 - Ulcerative colitis, unspecified, without complications Comprehensive Met. Panel Today K51.90 - Ulcerative colitis, unspecified, without complications Calprotectin, Fecal Today K51.90 - Ulcerative colitis, unspecified, without complications Complete Blood Count no Diff Today K51.90 - Ulcerative colitis, unspecified, without complications Medications: New polyethylene glycol 3350 (Miralax) mix in 64 oz gatorade for colonoscopy 238 grams PO ONCE 238 grams 0RF Coding Level of Care Code Est Pt Level 4 (37098) Diagnoses Ulcerative colitis K51.90 Personal history of colonic polyps Z86.010
--- OUTSIDE RECORDS SUMMARY | 2024-08-07 12:32 | XMS_ITS | Data Portability ---
Author Organization [place] [facility] Richa Burt AONE [facility] Address [address] [place] [address] Care Team Providers Care Staff Counsel Name Role Phone MESERET GERARD Primary Care Provider Assessment Encounter Date Assessment Date Assessment LastModified by Organization Details LastModified Time 09/08/2022 09/08/2022 HISTORY OF PRESENT ILLNESS: The patient presents today for evaluation injury left hand. The patient injured her left hand attempting to place a bag in the overhead bin on nail line flight August 27, 2022. The back slipped crushing the right hand. She developed pain, swelling and bruising. She was seen when she landed at a health facility in [facility]. Radiographs revealed a fracture. She was fitted with a splint. There are no significant complaints today other than mild pain, swelling and stiffness. REVIEW OF SYSTEMS: Constitutional: Unremarkable Musculoskeletal: Negative Neurologic: Intact EXAMINATION OF THE LEFT HAND: Skin is intact. Minimal swelling and ecchymosis in the ulnar aspect. Alignment metacarpals and digits satisfactory. Focal tenderness at the shaft of the fifth metacarpal without crepitus or gross motion. No tenderness with the thumb, index, long and ring finger metacarpals. No tenderness at the proximal, middle and distal phalanges digits or the proximal and distal phalanges thumb. No tenderness or instability at the MCP and IP joints. No tenderness at the A1 pulleys. Flexor and extensor tendons are intact. Range of motion excellent including the small finger. No malalignment with composite flexion. Neurovascular status is intact. RADIOGRAPHS: Radiographs of the left hand are obtained today. PA, lateral and oblique projections reveal mildly displaced long oblique/short spiral fracture midshaft fifth metacarpal. Mild degree of radial displacement distal fracture fragment in the PA plane. No significant malalignment in the lateral plane. DIAGNOSIS: Closed mildly displaced fifth metacarpal fracture left hand DISCUSSION: The diagnosis and condition are explained to the patient in detail. Treatment options are discussed. The patient elects to proceed with ulnar gutter splint immobilizing ring and small fingers. Patient was prescribed a ulnar gutter for fifth metacarpal fracture. The patient has weakness and/or instability of their left hand which requires stabilization from this semi-rigid/rigid orthosis to improve their function. She is instructed to remove the splint for active range of motion only. Activities are restricted with the left hand. She will return for reevaluation in 2 weeks. I thank you for referring this very pleasant individual, and I will keep you informed. [email or web address] Not available 09/08/2022 10:57:12 09/23/2022 09/23/2022 INTERIM HISTORY: The patient is 4 weeks status post closed mildly displaced fifth metacarpal fracture left hand. She is doing much better. She is being treated with a splint and a gentle active range of motion program. There are no complaints. EXAMINATION OF THE LEFT HAND: Skin is intact. Mild swelling in the ulnar aspect. Alignment metacarpals and digits satisfactory. No tenderness, crepitus or gross motion throughout the fifth metacarpal region. No tenderness or instability at the fifth CMC and fifth MCP joints. Composite flexion excellent. Good extension. Neurovascular status is intact. RADIOGRAPHS: Radiographs of the left hand are obtained today. PA, lateral and oblique projections reveal satisfactory alignment fifth metacarpal fracture in the shaft. Equivocal early healing. DISCUSSION: The patient is doing well. Activities remain restricted. I recommend she continue with the ulnar gutter prefab splint until her reevaluation in 3 weeks. She will continue with her range of motion program. [email or web address] Not available 09/23/2022 09:47:49 Plan of Treatment Reminders Order Date Submit Date Provider Last Modified By Organization Details Last Modified Time Details Appointments None record ed. Lab None record ed. Referral None record ed. Procedures None record ed. Surgeries None record ed. Imaging XR, hand, 3 or more view 023 09/24/19 23 haresh 5 [facility], [address], [place], [address], 3 10:35:48 XR, hand, 3 or more view 023 09/09/19 23 haresh 5 [facility], [address], [place], [address], 3 21:49:02 Medication Orders None record ed. Patient TargetsNo targets recorded. Patient InstructionsNo instructions recorded. Reason for Referral None Reported. Problems Name Problem SNOMED Code Status Onset Date Resolution Date Notes Provider Name and Address Organization Details Recorded Time Closed fracture of shaft of fifth metacarpal bone of left hand [id number] 9102 Active 2022 Dk Portillo MD [address], [place], [address], [place] [facility] 3 10:52:00 Problem Notes None recorded. Medical Equipment None Reported. Allergies No known drug allergies Medications Name Sig Start Date Stop Date Status Note LastModified by Organization Details LastModified Time valacyclovir 1 gram tablet TAKE 1 TABLET BY MOUTH THREE TIMES A DAY FOR 7 DAYS active Not Available Not Available N ot Available mesalamine 1,000 mg rectal suppository INSERT 1 SUPPOSITORY RECTALLY AT BEDTIME DAILY active Not Available Not Available No t Available Lialda 1.2 gram tablet,delay ed release TAKE 4 TABLETS BY MOUTH DAILY active Not Available Not Available Not Available Vitals Date Recorded Body height Body mass index (BMI) Body weight Provider Name and Address Organization Details Last Updated DateTime 09/08/2022 170.18 cm 24 kg/m2 18567.63 g Ashley Salmon [place] [facility] 09/08/2022 09:49:58 Date Recorded Body height Provider Name an d Address Organization Details Last Updated DateTime 09/23/2022 170.18 cm Augusto Zaragoza [place] [facility] 09/23/2022 09:29:07 Social History None recorded. Functional Status Question Answer Note LastModified by Organizat ion Details LastModified Time How many times per week do you consume alcohol? 3-4 times per week Information not available 09/08/2022 Do you use any illicit or recreational drugs? No Information not available 09/08/2022 Do you or have you ever used any other forms of tobacco or nicotine? No Information not available 09/08/2022 What is your level of alcohol consumption? Moderate Information not available 09/08/2022 Mental Status None recorded. Family History Relationship Description Onset Age of this Age Resolved Age Notes LastModified by Organization Details LastModified Time Father Arthritis Not availabl e 09/08/2022 09:50:43 Father Heart disease Not available 2022 09:50:59 Mother Arthritis Not availabl e 09/08/2022 09:50:43 Medical History No medical history recorded. Gynecological HistoryNo gynecological history recorded. Obstetrics History GPAL:G 0 P 0 0 0 0 Past Encounters Encounter ID Performer Location Encounter Start Date Encounter Closed Date Diagnosis/Indication Diagnosis SNOMED-CT Code Diagnosis ICD10 Code Diagnosis Note [id number] Dk Portillo MD [address] [address] 09/08/2022 09:11:48 09/08/2022 10:01:43 Pain of left hand [id number] 18775 M79.642 Closed fra cture of shaft of fifth metacarpal bone of left hand 1141188759 0706430 S62.327D [id number] Dk Portillo MD [address] [address] 09/23/2022 09:19:12 09/23/2022 09:46:56 Closed fracture of shaft of fifth metacarpal bone of left hand [id number] 1375716 S62.327D Health Concerns Section Related Observation LastModified by Organization Detai ls LastModified Time None Recorded Concern Status LastModified by Organization Details LastModified Time None Recorded Advance Directives Directive None Recorded Payers Encounter Date Sequence Insurance Name Policy Number Policy Sales Covered Member ID Sales Member ID Guarantor Name 09/08/2022 1 [facility] [id number] Elpidio Garcia [id number] Evelyn Garcia 09/23/2022 1 [facility] [id number] Elpidio Garcia [id number] Evelyn Furrer OBGyn Episode No OBEpisode recorded.
== END 2024-08-07 13:02 | disposition home or self-care (01) ==
LOC: HO.HGI 11:51
PROVIDERS: PCP Physician Assistant; Visit Provider Internal Medicine
DX: K51.90 Ulcerative colitis, unspecified, without complications (principal); Z86.0100 Personal history of colon polyps, unspecified
CPT/HCPCS: 99214

== ENCOUNTER 2024-09-04 13:55 | Outpatient (REF) | payer BC, SELFPAY ==
--- OUTSIDE RECORDS SUMMARY | 2024-09-04 15:49 | XMS_ITS | Data Portability ---
Author Organization [place] [facility] Richa Burt AONE [facility] Address [address] [place] [address] Care Team Providers Care Director Technical Name Role Phone MESERET GERARD Primary Care [...] she landed at a health facility in [facility]. Radiographs revealed a fracture. She was fitted [...] 023 09/24/19 23 haresh 5 [facility], [address], [place], [address], 3 10:35:48 XR, hand, 3 or more view 023 09/09/19 23 haresh 5 [facility], [address], [place], [address], 3 21:49:02 Medication Orders None record ed. Patient TargetsNo targets recorded. Patient InstructionsNo instructions recorded. Reason for Referral None Reported. Problems Name Problem SNOMED Code Status Onset Date Resolution Date Notes Provider Name and Address Organization Details Recorded Time Closed fracture of shaft of fifth metacarpal bone of left hand [id number] 9102 Active 2022 Dk Portillo MD [address], [place], [address], [place] [facility], [facility] 3 10:52:00 Problem Notes None recorded. [...] Updated DateTime 09/08/2022 170.18 cm 24 kg/m2 20674.63 g Ashley Salmon [place] [facility] 09/08/2022 09:49:58 Date Recorded Body height Provider Name an d Address Organization Details Last Updated DateTime 09/23/2022 170.18 cm Augusto Zaragoza [place] [facility] 09/23/2022 09:29:07 Social History None recorded. [...] SNOMED-CT Code Diagnosis ICD10 Code Diagnosis Note [id number] Dk Portillo MD [address] [address] 09/08/2022 09:11:48 09/08/2022 10:01:43 Pain of left hand [id number] 56341 M79.642 Closed fra cture of shaft of fifth metacarpal bone of left hand 2327590663 0220973 S62.327D [id number] Dk Portillo MD [address] [address] 09/23/2022 09:19:12 09/23/2022 09:46:56 Closed fracture of shaft of fifth metacarpal bone of left hand 1015324752 9355076 S62.327D Health Concerns Section Related Observation LastModified by Organization Detai ls LastModified Time None Recorded Concern Status LastModified by Organization Details LastModified Time None Recorded Advance Directives Directive None Recorded Payers Encounter Date Sequence Insurance Name Policy Number Policy Sales Covered Member ID Sales Member ID Guarantor Name 09/08/2022 1 [facility] [id number] Elpidio Garcia [id number] Evelyn Garcia 09/23/2022 1 [facility] [id number] Elpidio Garcia [id number] Evelyn Furrer OBGyn Episode No OBEpisode recorded.
[2024-09-10 21:28] LABS: Calprotectin, Fecal 7 mcg/g
== END 2024-09-04 13:56 | disposition home or self-care (01) ==
LOC: HO.LNP 13:55
PROVIDERS: Visit Provider Internal Medicine
DX: K51.90 Ulcerative colitis, unspecified, without complications (principal)
CPT/HCPCS: 83993

== ENCOUNTER 2024-12-15 12:44 | Emergency (ER) | payer BC, SELFPAY ==
--- NOTE | ~2024-12-15 | XR_ITS ---
EXAMINATION: XR ANKLE, RIGHT CLINICAL INFORMATION: trauma COMPARISON: None available. TECHNIQUE: AP, lateral, and mortise views of the right ankle. FINDINGS: There is a transverse fracture through the lateral malleolus, nondisplaced. No definite additional fracture is evident. A corticated density abutting the medial malleolus is consistent with sequela of old trauma. The ankle mortise is intact. The talar dome is normal. Subtalar joints and calcaneus appear normal. Probable os navicularis. There is an ankle joint effusion. There is soft tissue swelling most prominent laterally. XR/XR ankle RT min 3V IMPRESSION: Nondisplaced lateral malleolar fracture. Soft tissue swelling and joint effusion. Electronically signed by: Fabián Lange MD 12/15/2024 01:07 PM EDT
[2024-12-15 12:45] VITALS: BP 121/60; PULSE 72; RESP 16; TEMP 36.1; O2SAT 99; BMI 23.8
--- NOTE | 2024-12-15 12:49 | ED_ITS ---
HPI - General Adult General Chief complaint: Extremity Injury, Lower Stated complaint: R Ankle Pain Injury Time Seen by Provider: 12/15/24 14:06 Source: patient, RN notes reviewed and old records reviewed Mode of arrival: wheelchair Limitations: no limitations History of Present Illness ED Provider: Nallely SAHU narrative: [age] old female presents for evaluation of right ankle pain. Patient reports that just prior to arrival she was hiking. She was on her way back to her car pain She step from the street onto the dirt path and rolled her ankle She has pain to the outside of the right ankle pain Denies hitting her head or losing consciousness pain She has no other complaints or concerns at this time Related Data Previous Rx's ?Medication ?Instructions ?Recorded sulfasalazine 500 mg 1.5 g (3 x 500 mg) PO BID 30 days 05/31/24 tablet,delayed release #180 tabs polyethylene glycol 3350 17 238 g PO ONCE #238 grams 0 08/07/24 gram/dose oral powder (Miralax) oxycodone 5 mg tablet 5 mg PO Q8H PRN severe pain (scale 12/15/24 score 7-10) #6 tabs Allergies Allergy/AdvReac Type Severity Reaction Status Date / Time No Known Allergies Allergy Verified 12/15/24 12:51 Review of Systems Constitutional: Constitutional: Denies body ache(s), Denies chills, Denies fever(s) and Denies headache(s) ENT: Denies headache(s) Musculoskeletal: Musculoskeletal: Reports arthralgias, Reports joint swelling and Reports limited range of motion Neurologic: Denies headache(s) PMFSH Past Medical History Surgical History Hx of colonoscopy Family History Family History Mother COPD (chronic obstructive pulmonary disease) Mother COPD (chronic obstructive pulmonary disease) Social History Social History Household Members: Family Household Members Other:: Recent relocated from [place] Alcohol intake: current Alcohol intake frequency: holidays/special occasions only Patient Tobacco Use Status: Never used Tobacco Advance Directives: No Advance Directives Information Provided: No Current occupational status: employed Physical Exam ED Vital Signs: Vital Signs - 24 hr 12/15/24 12:45 Temperature 97.0 F Pulse Rate 72 Respiratory Rate 16 Blood Pressure 121/60 Pulse Oximetry 99 Oxygen Delivery Method Room Air BMI result Body Mass Index 23.8 Const General: healthy appearing, comfortable, no acute distress, alert and awake Nutritional Appearance: well nourished Orientation/consciousness: patient oriented x3 HENMT Head: Yes normocephalic and Yes atraumatic Eyes Eyelids: Yes eyelids normal Conjunctivae: conjunctivae normal Sclerae: sclerae normal Corneas: corneas normal Pupils: Equal, round and reactive pupils present EOM: EOMs intact bilaterally Neck Neck: Yes full ROM Resp Effort & Inspection: normal respiratory effort, able to speak in complete sentences and not labored Skin General skin exam: elasticity normal Neuro General: patient oriented x3 Cranial nerves: Yes Equal, round and reactive pupils present and Yes Bilaterally intact EOM present Cognition (Neuro): normal cognition Extrem Other: The patient has moderate edema to the right lateral ankle and tenderness over the right lateral malleolus. This is reduced range of motion with flexion- extension. There was no Achilles tenderness. Distal sensation is intact, capillary refill intact Course Course Course Narrative: RME, this is a rapid medical exam performed by Aleksandar Browning please refer to primary provider for complete H&P- 59 old female presents for evaluation of right ankle pain. She reports twisting her ankle while stepping from an the street to a trail earlier today. She has pain and swelling to the right lateral ankle. Plan for x-rays. Procedures Orthopedic Splinting/Casting Injury #1: Side: right Lower Extremity Injury Location: ankle Lower Extremity Immobilizer: stirrup splint Other Orthopedic Equipment: crutches Medical Decision Making Medical Decision Making MDM Narrative: 59 old female presents for evaluation of right ankle pain after rolling it. Plan for x-ray. Differential Diagnosis Differential Diagnoses: The differential diagnosis associated with the presentation includes Ankle sprain Ankle fracture Contusion Ankle dislocation Independent Interpretation I performed an independent interpretation of an: Plain X-Ray (Nondisplaced fracture of the right lateral malleolus) Radiology Impression Discussion of test interpretation with radiology: I have reviewed the radiologist's reading. Radiologist Impression: FINDINGS: There is a transverse fracture through the lateral malleolus, nondisplaced. No definite additional fracture is evident. A corticated density abutting the medial malleolus is consistent with sequela of old trauma. The ankle mortise is intact. The talar dome is normal. Subtalar joints and calcaneus appear normal. Probable os navicularis. There is an ankle joint effusion. There is soft tissue swelling most prominent laterally. XR/XR ankle RT min 3V IMPRESSION: Nondisplaced lateral malleolar fracture. Soft tissue swelling and joint effusion. Electronically signed by: Fabián Lange MD 12/15/2024 01:07 PM EDT Discharge Plan Discharge Clinical Impression: Ankle fracture, right Patient Disposition: Home, Self-Care Instructions: Ankle Fracture (ED) Additional Instructions: Your x-ray showed a nondisplaced fracture of the lateral malleolus of the ankle. This should heal well on its own but I do recommend that you follow up with your primary doctor and/or orthopedics Use the crutches and you should be nonweightbearing on the right side. Use ibuprofen or Tylenol for pain. You may use oxycodone for severe breakthrough pain. This may make you drowsy, do not drink alcohol or drive after taking it Prescriptions: New oxycodone 5 mg tablet 5 mg PO Q8H PRN (Reason: severe pain (scale score 7-10)) Qty: 6 0RF Rx Instructions: Partial Fill upon patient request. No Action sulfasalazine 500 mg tablet,delayed release (DR/EC) 1.5 g PO BID 30 Days Qty: 180 5RF polyethylene glycol 3350 [Miralax] 17 gram/dose powder 238 g PO ONCE Qty: 238 0RF Rx Instructions: mix in 64 oz gatorade for colonoscopy [place] [facility] [Provider Group] Referral Note: right lateral malleolus fracture Print Language: Icelandic
--- OUTSIDE RECORDS SUMMARY | 2024-12-15 14:42 | XMS_ITS | Clinical Summary ---
Author Organization [facility] Address [address] [facility] [address] [place] [phone] Phone Care Team Providers Care Sales Service Manager Name Role Phone Lindsay Garcias NP Primary Care Provid er Allergies No known active allergies Medications No known medications Active Problems No known active problems Social History Tobacco Use Types Packs/Day Years Used Date Smoking Tobacco: Never Assessed Education Answer Date Recorded Are you interested in more education? Not on verónica e 07/25/2022 Are you concerned about learning? Not on file 07/25/2022 No 07/25/2022 No 07/25/2022 Digital Access Answer Date Recorded No 08/25/2022 No 08/25/2022 Reliable internet access at home? Not on file 08/25/2022 Device with a working camera? Not on file Comments Unknown Sex and Gender Information Value Date Recorded Sex Assigned at Female 11/29/2021 9:46 AM EDT Legal Sex Female 9:43 AM EDT Gender Identity Female 11/29/2021 9:46 AM EDT Sexual Orientation Straight 11/29/2021 9: 46 AM EDT Last Filed Vital Signs Vital Sign Reading Time Taken Comments Blood Pressure 137/84 11/29/2021 11:49 AM EDT Pulse 66 11/29/2021 11:49 AM EDT Temperature 36.7 C (98.1 F) 11/29/2021 11:49 AM EDT Respiratory Rate 18 11/29/2021 11:49 AM EDT Oxygen Saturation 97% 11/29/2021 11:49 AM EDT Inhaled Oxygen Concentration - - Weight - - Height - - Body Mass Index - - Plan of Treatment Health Maintenance Due Date Last Done Comments Adult Td,Tdap Booster 1965 LIPID PANEL 1965 DEPRESSION SCREENING 1976 SMOKING Hx and SMOKELESS TOB ACCO SCREENING 1977 HEPATITIS C SCREENING 1982 HIV ONE-TIME SCREENING (18-6 5 YEARS) 1982 MAMMOGRAM 2004 COLOGUARD 2009 COLONOSCOPY 2009 COLORECTAL CANCER SCREENING 2009 FIT TEST 2009 FOBT 2009 SIGMOIDOSCOPY 2009 VIRTUAL COLONOSCOPY 2009 PNEUMOCOCCAL VACCINES (50+ y ears) (1 of 1 - PCV) 2014 ZOSTER VACCINES (1 of 2) 2014 INFLUENZA VACCINE (#1) 2024 COVID-19 VACCINE (1 - 2023-2 5 season) 2024 PAP SMEAR 04/21/2025 04/21/2022 RSV VACCINE (1 - 1-dose 75+ series) 2039 HEPATITIS A VACCINES Aged Out No long er eligible based on patient's age to complete this topic HIB VACCINES Aged Out No longer eligi ble based on patient's age to complete this topic MENINGOCOCCAL VACCINES (ACWY) Aged Out No longer eligible based on patient's age to complete this topic MENINGOCOCCAL VACCINES (B) Aged Out N o longer eligible based on patient's age to complete this topic Medical Devices Not on file Procedures Procedure Name Priority Date/Time Associated Diagnosis Comments PAP TEST Routine 04/21/2022 12:00 AM EST from Last 3 Months or Most Recently Relevant to Health Maintenance Results * Pap Test (04/21/2022 12:00 AM EST) 04/21/2022 04/22/2022 9:0 2 AM EST Narrative SEE NARRATIVE - 04/29/2022 11:33 AM EST [address] [address] Tractor Sweeper Driver: Aida Garg MD SUBSTATION OPERATOR APPRENTICE Cytology Report FINAL DIAGNOSIS A. PAP SMEAR (SUREPATH) CE: SPECIMEN ADEQUACY: Satisfactory for evaluation; transformation zone present. INTERPRETATION: NEGATIVE FOR INTRAEPITHELIAL LESION OR MALIGNANCY. Electronically Signed Out By: CHRIS Tesfaye(ASCP) CHRIS Mahajan(ASCP) The Pap test is a screening test primarily for squamous cancers and precursors and has associated false-negative and false-positive results. New technologies such as liquid-based preparations may decrease but will not eliminate all false-negative results. Regular sampling and follow-up of unexplained clinical signs and symptoms are recommended to minimize false negative results. PROCEDURES/ADDENDA HPV Testing (Requested) Ordered Date: 04/22/2022 A. PAP SMEAR (SUREPATH) CE: Human Papilloma Virus Test NEGATIVE for high-risk Human Papilloma Virus types 16, 18, 45 and the Other high risk probe set (Includes 31, 33, 35, 39, 51, 52, 56, 58, 59, 66, 68) Note: Testing performed by [facility] HR-HPV analysis. Clinical correlation is advised. This HPV test was performed at [facility], [address] [place] [address]. This test has been FDA approved for [facility] cervical cytology specimens. The accuracy and precision of this test for all other specimen sources has been verified in the Cytopathology Laboratory of the [facility] and has not been cleared or approved by the U.S. Food and Drug Administration. Clinical correlation is advised. CLINICAL HISTORY Date of Last Menstrual Period: Not Provided Menstrual History: Post Menopausal Bleeding, PM Other Clinical Conditions: Screening Pap SPECIMEN SOURCE A: PAP SMEAR (SUREPATH) CE Patient Name: FRANCISCO GARCIA : 1965 (Age: 57) Sex: F Institution: [facility] Location: [facility] Date of Collection: 04/21/2022 Date of Reported: 04/29/2022 11:33 Results to: Lindsay JUARESP Lindsay Garcias BINDERY MANAGER CYTOLOGY ORDERABLES Final Result SEE NARRATIVE from Last 3 Months or Most Recently Relevant to Health Maintenance Insurance PPO PPO [place] [address] [address] [place] [place] [address] [place] [address] PPO [facility] [address] [address] [place] [address] PPO Care Teams Sales Service Manager Relationship Specialty Start Date End Date Lindsay Garcias NP [address] [place] [phone] [email or web address] PCP - General Nurse Practitioner 05/15/22 Additional Source Comments The information contained in this document represents components of the legal health record. It is not the complete legal health record.[facility]
--- OUTSIDE RECORDS SUMMARY | 2024-12-15 14:42 | XMS_ITS ---
Author Name [facility] Organization Unknown History of Medication Use Medication Directions Dispensed Refills Start Date End Date Stat mesalamine 1,000 mg rectal suppository INSERT 1 SUPPOSITORY RECTALLY AT BEDTIME DAILY active valacyclovir 1 gram tablet TAKE 1 TABLET BY MOUTH THREE TIMES A DAY FOR 7 DAYS active Problems Problem Status Onset Date Problem Type Date of Resoluti on Source Closed fracture of shaft of fifth metacarpal bone of left hand active 2022-09-08 ProblemAct ENS_AONECT Encounters Encounter Type Encounter Reason Primary Diagnosis Location Date Ambulatory [facility] 09/23/2022 Ambulatory [facility] 09/21/2022 Ambulatory [facility] 09/08/2022 Ambulatory [facility] 09/08/2022 Ambulatory [facility] 09/08/2022 Ambulatory [facility] 09/04/2022
[2024-12-15 14:55] VITALS: BP 121/60; PULSE 72; RESP 16; TEMP 36.1; O2SAT 99
== END 2024-12-15 14:56 | disposition home or self-care (01) ==
PROVIDERS: Emergency Provider Emergency Medicine Emergency Medical Services
DX: S82.891A Other fracture of right lower leg, initial encounter for closed fracture (principal); M25.571 Pain in right ankle and joints of right foot; S93.401A Sprain of unspecified ligament of right ankle, initial encounter; X58.XXXA Exposure to other specified factors, initial encounter; Y93.9 Activity, unspecified; Y92.9 Unspecified place or not applicable; Y99.8 Other external cause status
CPT/HCPCS: 29515; 73610; 99282; 99283

== ENCOUNTER → 2024-12-15 12:49 | Outpatient (BNV) | payer BC, SELFPAY | PROVIDERS: Visit Provider Radiology Diagnostic Radiology | DX: S82.61XA Displaced fracture of lateral malleolus of right fibula, initial encounter for closed fracture (principal); X50.1XXA Overexertion from prolonged static or awkward postures, initial encounter | CPT/HCPCS: 73610 ==